=== PATIENT | female | born 1995 | race Caucasian/White ===

== ENCOUNTER 2016-06-10 21:51 | Emergency (ER) | payer OTHER ==
[~2016-06-10] VITALS: Ht 160 cm; Wt 67.7 kg
[~2016-06-10 21:51] MED LIST: CIPR500T4 PO; RANI150 PO; ZOFR4TAB3 SL
[2016-06-10 22:01] VITALS: BP 135/100; PULSE 110; RESP 16; TEMP 97.9; O2SAT 99
[2016-06-10] MEDS ORDERED: ONDANSETRON HCL 4 MG/2 ML VIAL IV PUSH ONE ×2 (22:15→23:30)
[2016-06-10] MEDS ORDERED: SODIUM CHLORIDE 0.9% FLUSH 10 ML FLUSH IVF PRN (22:15)
[2016-06-10] MEDS ORDERED: SODIUM CHLOR 0.9% 1000 ML INJ 1,000 ML IV ONE ×3 (22:15→23:30)
--- NOTE | 2016-06-10 22:22 | PD ---
HPI Chief Complaint: GI Complaint Time Seen by Provider: 22:04 Travel History International Travel<30 days: No Contact w/Intl Traveler<30days: No History of Present Illness HPI Patient is a 21 year old female who presents to ER with complaint of alcohol poisoning. Patient reports that she drank very heavily on Thursday night and reports that she has been feeling nauseous ever since Thursday night. Patient reports that she has been trying to hydrate herself with gatorade but every time she takes a sip, she throws up. Reports that she has not eaten or had any fluids for the past 3 days. Reports that she feels sick and is beginning to have palpitations at this time. Patient denies chest pain/sob. Denies fever/ chills. Denies abdominal pain. No other c/o. PFSH Past Medical History Medical History: Denies Significant Hx Asthma: Yes Depression: Yes Cardiovascular Problems: No Diabetes: No Diminished Hearing: No Gastrointestinal Disorders: No Genitourinary: No Musculoskeletal: No Neurologic: No Respiratory: Yes Immunizations Current: Yes Tetanus Vaccination: Never Vaccinated ?: Unknown LMP: 05/31/16 : 0 Para: 0 Miscarriage: 0 : 0 Past Surgical History Ear Surgery: Yes (TUBES 1999) Oral Surgery: Yes (T & A 1999) Tonsillectomy: Yes Tympanostomy Tube: Yes Other Surgery: Yes Social History Alcohol Use: Yes (OCCASIONALLY) Tobacco Use: No Substance Use: Yes (MARIJUANA sometimes) Allergies-Medications (Allergen,Severity, Reaction): Coded Allergies: Albuterol (Verified Allergy, Severe, Anaphylaxis, 06/10/16) Xopenex (Verified Allergy, Severe, Anaphylaxis, 06/10/16) Bactrim (Verified Allergy, Intermediate, Swelling, 06/10/16) Sulfa (Verified Allergy, Unknown, HIVES, 06/10/16) Reported Meds & Prescriptions Reported Meds & Active Scripts Active Zofran Odt (Ondansetron Odt) 4 Mg Tab 4 Mg SL Q6HR PRN Review of Systems General / Constitutional: No: Fever Eyes: No: Visual changes HENT: No: Headaches Cardiovascular: Positive: Palpitations, No: Chest Pain or Discomfort Respiratory: No: Shortness of Breath Gastrointestinal: Positive: Nausea, Vomiting, No: Abdominal Pain Genitourinary: No: Dysuria Musculoskeletal: No: Pain Skin: No Rash Neurologic: No: Weakness Psychiatric: No: Depression Endocrine: No: Polydipsia Hematologic/Lymphatic: No: Easy Bruising Physical Exam Narrative GENERAL: mild distress SKIN: Focused skin assessment warm/dry. HEAD: Atraumatic. Normocephalic. EYES: Pupils equal and round. No scleral icterus. No injection or drainage. ENT: No nasal bleeding or discharge. Mucous membranes pink and moist. NECK: Trachea midline. No JVD. CARDIOVASCULAR: Regular rate and rhythm. No murmur appreciated. RESPIRATORY: No accessory muscle use. Clear to auscultation. Breath sounds equal bilaterally. GASTROINTESTINAL: Abdomen soft, non-tender, nondistended. Hepatic and splenic margins not palpable. MUSCULOSKELETAL: No obvious deformities. No clubbing. No cyanosis. No edema. NEUROLOGICAL: Awake and alert. No obvious cranial nerve deficits. Motor grossly within normal limits. Normal speech. PSYCHIATRIC: Appropriate mood and affect; insight and judgment normal. Data Data Last Documented VS Vital Signs Date Time Temp Pulse Resp B/P Pulse Ox O2 Delivery O2 Flow Rate FiO2 06/10/16 22:56 100 Room Air 06/10/16 22:01 97.9 110 16 135/100 Orders Complete Blood Count With Diff (06/10/16 22:13) Comprehensive Metabolic Panel (06/10/16 22:13) Urinalysis - C+S If Indicated (06/10/16 22:13) Ed Urine Pregnancytest Poc (06/10/16 22:13) Electrocardiogram (06/10/16 22:13) Oximetry (06/10/16 22:13) Iv Access Insert/Monitor (06/10/16 22:13) Ecg Monitoring (06/10/16 22:13) Sodium Chloride 0.9% Flush (Ns Flush) (06/10/16 22:15) Drug Screen, Random Urine (06/10/16 22:13) Alcohol (Ethanol) (06/10/16 22:13) Sodium Chlor 0.9% 1000 Ml Inj (Ns 1000 M (06/10/16 22:15) Sodium Chlor 0.9% 1000 Ml Inj (Ns 1000 M (06/10/16 22:15) Ondansetron Inj (Zofran Inj) (06/10/16 22:15) Potassium Chloride Eff (K-Lyte Cl Eff) (06/10/16 23:15) Ondansetron Inj (Zofran Inj) (06/10/16 23:30) Sodium Chlor 0.9% 1000 Ml Inj (Ns 1000 M (06/10/16 23:30) Labs Laboratory Tests Test 06/10/16 22:20 White Blood Count 11.2 TH/MM3 Red Blood Count 6.11 MIL/MM3 Hemoglobin 18.1 GM/DL Hematocrit 52.7 % Mean Corpuscular Volume 86.2 FL Mean Corpuscular Hemoglobin 29.7 PG Mean Corpuscular Hemoglobin 34.4 % Concent Red Cell Distribution Width 13.5 % Platelet Count 224 TH/MM3 Mean Platelet Volume 7.9 FL Neutrophils (%) (Auto) 80.0 % Lymphocytes (%) (Auto) 10.1 % Monocytes (%) (Auto) 9.5 % Eosinophils (%) (Auto) 0.0 % Basophils (%) (Auto) 0.4 % Neutrophils # (Auto) 9.0 TH/MM3 Lymphocytes # (Auto) 1.1 TH/MM3 Monocytes # (Auto) 1.1 TH/MM3 Eosinophils # (Auto) 0.0 TH/MM3 Basophils # (Auto) 0.0 TH/MM3 CBC Comment AUTO DIFF Differential Comment AUTO DIFF CONFIRMED Platelet Estimate NORMAL Platelet Morphology Comment NORMAL Red Cell Morphology Comment NORMAL Sodium Level 130 MEQ/L Potassium Level 2.4 MEQ/L Chloride Level 78 MEQ/L Carbon Dioxide Level 38.8 MEQ/L Anion Gap 13 MEQ/L Blood Urea Nitrogen 32 MG/DL Creatinine 1.30 MG/DL Estimat Glomerular Filtration 52 ML/MIN Rate Random Glucose 108 MG/DL Calcium Level 10.0 MG/DL Total Bilirubin 2.1 MG/DL Aspartate Amino Transf 60 U/L (AST/SGOT) Alanine Aminotransferase 44 U/L (ALT/SGPT) Alkaline Phosphatase 57 U/L Total Protein 9.4 GM/DL Albumin 4.8 GM/DL Ethyl Alcohol Level LESS THAN 3 MG/DL MDM Medical Decision Making Medical Screen Exam Complete: Yes Emergency Medical Condition: Yes Interpretation(s) EKG at 2245: NSR at 74bpm, qt/qtc: 428/452, no acute st or t wave changes Vital Signs Date Time Temp Pulse Resp B/P Pulse Ox O2 Delivery O2 Flow Rate FiO2 06/10/16 22:01 97.9 110 16 135/100 99 Differential Diagnosis Dehydration, electrolyte abnormality, hangover from ETOH poisoning Narrative Course Patient is a 21 year old female who presents to ER with c/o of nausea and vomiting and palpitations. Patient reports that she was depressed as she had "alot of family issues" going on and reports that she accidently drank too much on Thursday. Reports that she suffered from alcohol poisoning and reports that she has not been able to keep down any fluids or food for the past 3 days. Patient reports that she feels dehydrated and is nauseous. Denies abdominal pains. Reports that she is having intermittent palpitations at this time. Plan to obtain lab work and rehydrate by administering IVF as well as anti- emetics. Diagnosis Primary Impression: Nausea & vomiting Qualified Code: R11.2 - Non-intractable vomiting with nausea, unspecified vomiting type Additional Impression: Hypokalemia Patient Instructions: General Instructions Additional Instructions: Please return to the emergency room as needed or if symptoms worsen or progress Please follow-up with primary care doctor Patient plenty of fluids Med/Other Pt SpecificInfo: Prescription(s) given Scripts Ondansetron Odt (Zofran Odt)4 Mg Tab4 Mg SL Q6HR PRN (Nausea/Vomiting) #30 TAB Ref 0 Prov:Amna Carmona DO 06/10/16 Disposition: 01 DISCHARGE HOME Condition: Stable Amna Carmona DO June 10, 2016 22:22
[2016-06-10 22:32] LABS: BASOPHIL % 0.4 % (0.0-2.0); HEMATOCRIT 52.7 % (35.0-46.0); LYMPH % 10.1 % (9.0-44.0); LYMPHOCYTE # 1.1 TH/MM3 (1.0-4.8); MEAN CELL VOLUME 86.2 FL (80.0-100.0); MEAN CORPUSCULAR HEMOGLOBIN 29.7 PG (27.0-34.0); MEAN CORPUSCULAR HGB CONC 34.4 % (32.0-36.0); MONO % 9.5 % (0.0-8.0); PLATELET COUNT 224 TH/MM3 (150-450); RED BLOOD COUNT 6.11 MIL/MM3 (4.00-5.30); RED CELL DISTRIBUTION WIDTH 13.5 % (11.6-17.2); WHITE BLOOD COUNT 11.2 TH/MM3 (4.0-11.0)
[2016-06-10] MEDS ORDERED: ZOFR4TAB3 SL (22:52)
[2016-06-10 22:55] VITALS: BP 141/89; PULSE 72; RESP 18; O2SAT 100
[2016-06-10 22:56] VITALS: O2SAT 100
[2016-06-10 22:59] LABS: HEMO FLAGS AUTO DIFF
[2016-06-10 23:00] LABS: PLATELET ESTIMATE SMEAR NORMAL (NORMAL); PLATELET MORPHOLOGY NORMAL (NORMAL); SCAN/DIFF AUTO DIFF CONFIRMED
[2016-06-10 23:03] LABS: ALKALINE PHOSPHATASE 57 U/L (45-117); ALT (GPT) 44 U/L (10-53); ANION GAP 13 MEQ/L (5-15); AST (GOT) 60 U/L (15-37); BICARBONATE 38.8 MEQ/L (21.0-32.0); BLOOD UREA NITROGEN 32 MG/DL (7-18); CHLORIDE 78 MEQ/L (98-107); GLOMERULAR FILTRATION RATE 52 ML/MIN (>89); SODIUM (NA) 130 MEQ/L (136-145); TOTAL BILIRUBIN ADULT 2.1 MG/DL (0.2-1.0)
[2016-06-10 23:06] LABS: POTASSIUM 2.4 MEQ/L (3.5-5.1)
[2016-06-10] MEDS ORDERED: POTASSIUM CHLORIDE 25 MEQ EFFERVESCENT TAB PO ONE (23:15)
[2016-06-10 23:53] LABS: BLOOD, URINE TRACE (NEG); GLUCOSE,URINE NEG (NEG); KETONE, URINE 15 mg/dL (NEG); NITRITE,URINE NEG (NEG); PH, URINE 8.5 (5.0-8.5)
[2016-06-10 23:55] VITALS: BP 136/77; PULSE 76; RESP 18; O2SAT 100
[2016-06-11] MEDS ORDERED: METOCLOPRAMIDE HCL 10 MG/2 ML VIAL IV PUSH ONE
[2016-06-11 00:03] LABS: AMPHETAMINE, URINE NEG (NEG); BARBITURATES, URINE NEG (NEG); COCAINE, URINE NEG (NEG)
[2016-06-11 00:09] LABS: URINE COLOR YELLOW (YELLW/STRAW)
[2016-06-11 00:10] LABS: HYALINE CAST, URINE 15-19 /lpf (RARE); MUCUS URINE FEW /lpf (OCC); SQUAMOUS EPITHELIAL CELL URINE 0-5 /hpf (0-5)
[2016-06-11 00:11] LABS: BACTERIA, URINE OCC /hpf; COMMENT (UR) CULT NOT INDICATED; CULTURE IF INDICATED CULT NOT INDICATED; RBC, URINE 0-3 /hpf (0-3)
[2016-06-11 01:11] VITALS: BP 129/71; TEMP 97.9
--- NOTE | 2016-06-11 10:32 | EKG ---
Date Performed: 06/10/2016 Time Performed: 22:45:02 PTAGE: 21 years EKG: Sinus rhythm ST junctional depression is nonspecific Borderline ECG PREVIOUS TRACING : 08/01/2015 13.57 DOCTOR: Kam Cordero Interpretating Date/Time 06/11/2016 10:32:05
== END 2016-06-11 01:14 | disposition home or self-care (01) ==
LOC: PHED 21:51
DX: E87.6 Hypokalemia (principal); R00.2 Palpitations; R11.2 Nausea with vomiting, unspecified; F10.10 Alcohol abuse, uncomplicated
CPT/HCPCS: 80053; 80307; 81001; 84703; 85025; 93005; 96361; 96374; 96375; 96376; 99285; J2405; J2765; J7030

== ENCOUNTER 2016-07-08 14:24 | Emergency (ER) | payer OTHER ==
[~2016-07-08] VITALS: Ht 160 cm; Wt 69.0 kg
[~2016-07-08 14:24] MED LIST changes: -CIPR500T4 PO; -RANI150 PO
[2016-07-08 14:39] VITALS: BP 113/80; PULSE 105; RESP 17; TEMP 100.1; O2SAT 98
[2016-07-08 15:10] VITALS: BP 174/90; PULSE 78; RESP 16; O2SAT 97
[2016-07-08] MEDS ORDERED: SODIUM CHLOR 0.9% 1000 ML INJ 1,000 ML IV ONE (15:15)
[2016-07-08] MEDS ORDERED: ONDANSETRON HCL 4 MG/2 ML VIAL IV PUSH ONE (15:15)
--- NOTE | 2016-07-08 15:34 | PD ---
HPI Chief Complaint: Flank/Kidney Pain Time Seen by Provider: 14:57 Travel History International Travel<30 days: No Contact w/Intl Traveler<30days: No Traveled to known affect area: No History of Present Illness HPI Patient is a 21-year-old female who comes in complaining of right flank pain for 3 days. She says the pain is getting much worse, and wraps around to her front. She's had some nausea and vomiting. She denies fever or chills. She denies dysuria, but says it feels like she is not completely emptying her bladder. PFSH Past Medical History Asthma: Yes Depression: Yes Cardiovascular Problems: No Diabetes: No Diminished Hearing: No Gastrointestinal Disorders: No Genitourinary: Yes (hx of kidney infections) Musculoskeletal: No Neurologic: No Respiratory: Yes Immunizations Current: Yes Tetanus Vaccination: < 5 Years Influenza Vaccination: No ?: Not LMP: 4 WEEKS AGO : 0 Para: 0 Miscarriage: 0 : 0 Past Surgical History Ear Surgery: Yes (TUBES 1999) Oral Surgery: Yes (T & A 1999) Tonsillectomy: Yes Tympanostomy Tube: Yes Other Surgery: Yes Social History Alcohol Use: Yes (OCCASIONALLY mix drinks or wine) Tobacco Use: No Substance Use: Yes (MARIJUANA sometimes) Allergies-Medications (Allergen,Severity, Reaction): Coded Allergies: Albuterol (Verified Allergy, Severe, Anaphylaxis, 07/08/16) Xopenex (Verified Allergy, Severe, Anaphylaxis, 07/08/16) Bactrim (Verified Allergy, Intermediate, Swelling, 07/08/16) Sulfa (Verified Allergy, Unknown, HIVES, 07/08/16) Reported Meds & Prescriptions Reported Meds & Active Scripts Active No Active Prescriptions or Reported Medications Review of Systems Except as stated in HPI: all other systems reviewed are Neg General / Constitutional: No: Fever, Chills HENT: No: Headaches, Lightheadedness Cardiovascular: No: Chest Pain or Discomfort Respiratory: No: Shortness of Breath Gastrointestinal: Positive: Nausea, Vomiting, Abdominal Pain Genitourinary: Positive: Flank Pain, No: Dysuria Musculoskeletal: No: Weakness, Edema Skin: No Rash, No Change in Pigmentation Neurologic: No: Weakness, Dizziness Physical Exam Narrative GENERAL: Awake and alert, in no acute distress. SKIN: Focused skin assessment warm/dry. HEAD: Atraumatic. Normocephalic. EYES: Pupils equal and round. No scleral icterus. ENT: Mucous membranes pink and moist. NECK: Trachea midline. No JVD. CARDIOVASCULAR: Regular rate and rhythm. No murmur appreciated. RESPIRATORY: No accessory muscle use. Clear to auscultation. Breath sounds equal bilaterally. GASTROINTESTINAL: Abdomen soft, nondistended. Tender to palpation of the right upper quadrant. Right CVA tenderness. No rebound or guarding. MUSCULOSKELETAL: No obvious deformities. No clubbing. No cyanosis. No edema. NEUROLOGICAL: Awake and alert. No obvious cranial nerve deficits. Motor grossly within normal limits. Normal speech. PSYCHIATRIC: Appropriate mood and affect; insight and judgment normal. Data Data Last Documented VS Vital Signs Date Time Temp Pulse Resp B/P Pulse Ox O2 Delivery O2 Flow Rate FiO2 07/08/16 15:07 105 16 07/08/16 14:39 100.1 113/80 98 Orders Complete Blood Count With Diff (07/08/16 15:04) Basic Metabolic Panel (Bmp) (07/08/16 15:04) Hepatic Functional Panel (07/08/16 15:04) Lipase (07/08/16 15:04) Urinalysis - C+S If Indicated (07/08/16 15:04) Ed Urine Pregnancytest Poc (07/08/16 15:04) Sodium Chlor 0.9% 1000 Ml Inj (Ns 1000 M (07/08/16 15:15) Ondansetron Inj (Zofran Inj) (07/08/16 15:15) Ct Abd/Pel W/O Iv Contrast (07/08/16 ) MDM Medical Decision Making Medical Screen Exam Complete: Yes Emergency Medical Condition: Yes Medical Record Reviewed: Yes Differential Diagnosis UTI versus pyelonephritis versus renal stone Narrative Course Patient is a 21-year-old female who comes in complaining of right flank pain. Exam shows right CVA tenderness as well as right upper quadrant tenderness. IV established, labs sent. Patient given IV fluids, Zofran. CT abdomen and pelvis ordered. Patient signed out to Dr. Garcia To follow up testing and disposition. Scripts No Active Prescriptions or Reported Meds Irena Velazquez MD July 08, 2016 15:34
[2016-07-08 15:39] LABS: AUTOMATED NEUTROPHIL # 15.3 TH/MM3 (1.8-7.7); BASOPHIL # 0.3 TH/MM3 (0-0.2); BASOPHIL % 1.6 % (0.0-2.0); EOSINOPHIL # 0.1 TH/MM3 (0-0.4); EOSINOPHIL % 0.7 % (0.0-4.0); HEMATOCRIT 41.6 % (35.0-46.0); LYMPH % 2.5 % (9.0-44.0); LYMPHOCYTE # 0.4 TH/MM3 (1.0-4.8); MEAN CELL VOLUME 88.4 FL (80.0-100.0); MEAN CORPUSCULAR HEMOGLOBIN 29.5 PG (27.0-34.0); MEAN CORPUSCULAR HGB CONC 33.4 % (32.0-36.0); MONO % 5.3 % (0.0-8.0); NEUT % 89.9 % (16.0-70.0); PLATELET COUNT 136 TH/MM3 (150-450); RED BLOOD COUNT 4.71 MIL/MM3 (4.00-5.30); RED CELL DISTRIBUTION WIDTH 14.2 % (11.6-17.2)
[2016-07-08 15:46] LABS: HEMO FLAGS AUTO DIFF
[2016-07-08] MEDS ORDERED: KETOROLAC TROMETHAMINE 30 MG/ML (IVP) VIAL IV PUSH ONE (16:00)
[2016-07-08 16:27] LABS: BICARBONATE 22.6 MEQ/L (21.0-32.0); POTASSIUM 3.6 MEQ/L (3.5-5.1)
[2016-07-08 16:30] LABS: INDIRECT BILIRUBIN 0.6 MG/DL (0.0-0.8); TOTAL BILIRUBIN ADULT 0.8 MG/DL (0.2-1.0)
[2016-07-08 16:44] LABS: SCAN/DIFF AUTO DIFF CONFIRMED
[2016-07-08 16:50] VITALS: BP 100/55; PULSE 81; RESP 16; O2SAT 99
[2016-07-08 16:54] LABS: BLOOD, URINE LARGE (NEG); GLUCOSE,URINE NEG (NEG)
[2016-07-08 17:01] LABS: KETONE, URINE 80 OR GREATER mg/dL (NEG); NITRITE,URINE POS (NEG)
[2016-07-08 17:03] LABS: BACTERIA, URINE MANY /hpf; COMMENT (UR) CULTURE INDICATED; CULTURE IF INDICATED CULTURE INDICATED; SQUAMOUS EPITHELIAL CELL URINE > 8 /hpf (0-5); URINE COLOR YELLOW (YELLW/STRAW); WBC, URINE 100-200 /hpf (0-5)
--- NOTE | 2016-07-08 17:15 | RADHPO ---
EXAM DATE/TIME: 07/08/2016 16:48 [facility] COMPARISON: No previous studies available for comparison. INDICATIONS : Right flank pain. ORAL CONTRAST: No oral contrast ingested. RADIATION DOSE: 10.46 CTDIvol (mGy) MEDICAL HISTORY : None SURGICAL HISTORY : None. ENCOUNTER: Initial ACUITY: 3 days PAIN SCALE: 6/10 LOCATION: Right flank TECHNIQUE: Volumetric scanning of the abdomen and pelvis was performed. Using automated exposure control and ad justment of the mA and/or kV according to patient size, radiation dose was kept as low as reasonably achievable to obtain optimal diagnostic quality images. The lack of IV contrast limits the diagnosis for certain organ pathology. FINDINGS: LOWER LUNGS: The visualized lower lungs are clear. LIVER: Homogeneous density without lesion. There is no dilation of the biliary tree. No calcified gallston es. SPLEEN: Normal size without lesion. PANCREAS: Within normal limits. KIDNEYS: Normal in size and shape. There is no mass, stone, or hydronephrosis. ADRENAL GLANDS: Within normal limits. VASCULAR: There is no aortic aneurysm. BOWEL/MESENTERY: The stomach, small bowel, and colon demonstrate no acute abnormality. There is no free intraperitone al air. The appendix is unremarkable. No inflammatory changes are seen. There is a trace of fluid in cul-de-sac. ABDOMINAL WALL: Within normal limits. RETROPERITONEUM: There is no lymphadenopathy. BLADDER: No wall thickening or mass. REPRODUCTIVE: 2.1 cm right ovarian cyst with a trace of fluid in the cul-de-sac. INGUINAL: There is no lymphadenopathy or hernia. MUSCULOSKELETAL: Within normal limits for patient age. CONCLUSION: 1. No calcified renal stones or hydronephrosis. 2. 2.1 cm right ovarian cyst with a trace of fluid in the cul-de-sac. Gabo Cazares MD on July 08, 2016 at 17:10 Board Certified Radiologist. This report was verified electronically.
[2016-07-08] MEDS ORDERED: CIPR500T2 PO (17:30)
[2016-07-08] MEDS ORDERED: ZOFR4TAB3 SL (17:30)
[2016-07-08] MEDS ORDERED: cefTRIAXone INJ 1,000 MG in SODIUM CHLORIDE 0.9% INJ 100 ML IV ONE (17:30)
--- NOTE | 2016-07-08 17:30 | PD ---
Data Data Last Documented VS Vital Signs Date Time Temp Pulse Resp B/P Pulse Ox O2 Delivery O2 Flow Rate FiO2 07/08/16 16:51 87 16 07/08/16 16:50 100/55 99 Room Air 07/08/16 14:39 100.1 Orders Complete Blood Count With Diff (07/08/16 15:04) Basic Metabolic Panel (Bmp) (07/08/16 15:04) Hepatic Functional Panel (07/08/16 15:04) Lipase (07/08/16 15:04) Urinalysis - C+S If Indicated (07/08/16 15:04) Ed Urine Pregnancytest Poc (07/08/16 15:04) Sodium Chlor 0.9% 1000 Ml Inj (Ns 1000 M (07/08/16 15:15) Ondansetron Inj (Zofran Inj) (07/08/16 15:15) Ct Abd/Pel W/O Iv Contrast (07/08/16 ) Ketorolac Inj (Toradol Inj) (07/08/16 16:00) Urine Culture (07/08/16 16:30) Ceftriaxone Inj (Rocephin Inj) (07/08/16 17:30) Labs Laboratory Tests Test 07/08/16 07/08/16 15:20 16:30 White Blood Count 17.0 TH/MM3 Red Blood Count 4.71 MIL/MM3 Hemoglobin 13.9 GM/DL Hematocrit 41.6 % Mean Corpuscular Volume 88.4 FL Mean Corpuscular Hemoglobin 29.5 PG Mean Corpuscular Hemoglobin 33.4 % Concent Red Cell Distribution Width 14.2 % Platelet Count 136 TH/MM3 Mean Platelet Volume 8.3 FL Neutrophils (%) (Auto) 89.9 % Lymphocytes (%) (Auto) 2.5 % Monocytes (%) (Auto) 5.3 % Eosinophils (%) (Auto) 0.7 % Basophils (%) (Auto) 1.6 % Neutrophils # (Auto) 15.3 TH/MM3 Lymphocytes # (Auto) 0.4 TH/MM3 Monocytes # (Auto) 0.9 TH/MM3 Eosinophils # (Auto) 0.1 TH/MM3 Basophils # (Auto) 0.3 TH/MM3 CBC Comment AUTO DIFF Differential Comment AUTO DIFF CONFIRMED Sodium Level 138 MEQ/L Potassium Level 3.6 MEQ/L Chloride Level 104 MEQ/L Carbon Dioxide Level 22.6 MEQ/L Anion Gap 11 MEQ/L Blood Urea Nitrogen 7 MG/DL Creatinine 0.76 MG/DL Estimat Glomerular Filtration 96 ML/MIN Rate Random Glucose 101 MG/DL Calcium Level 9.1 MG/DL Total Bilirubin 0.8 MG/DL Direct Bilirubin 0.2 MG/DL Indirect Bilirubin 0.6 MG/DL Aspartate Amino Transf 20 U/L (AST/SGOT) Alanine Aminotransferase 18 U/L (ALT/SGPT) Alkaline Phosphatase 59 U/L Total Protein 7.3 GM/DL Albumin 3.6 GM/DL Lipase 50 U/L Urine Color YELLOW Urine Turbidity CLOUDY Urine pH 6.0 Urine Specific [place] 1.015 Urine Protein 100 mg/dL Urine Glucose (UA) NEG mg/dL Urine Ketones 80 OR GREATER mg/dL Urine Occult Blood LARGE Urine Nitrite POS Urine Bilirubin NEG Urine Leukocyte Esterase MOD Urine RBC 20-24 /hpf Urine WBC 100-200 /hpf Urine Squamous Epithelial > 8 /hpf Cells Urine Bacteria MANY /hpf Microscopic Urinalysis Comment CULTURE INDICATED MDM Supervised Visit with TACO: No Narrative Course The patient was initially evaluated by the previous provider and sent out to me at the beginning of my shift pending labs, CT abdomen pelvis, and disposition. See her note for further details. Briefly this is a 21-year-old female who is here for evaluation of right flank pain 3 days. Today the patient had worsening pain as well as nausea and vomiting. Pain radiates to her right upper abdomen as well as her right lower abdomen. The patient was given normal saline IV as well as Zofran by the previous provider, and on my assessment the patient states she is feeling improved. She no longer feels nauseous and is tolerating clear liquids in the emergency department. Physical exam shows mild right upper quadrant tenderness as well as mild right CVA tenderness. Initial vital signs showed heart rate 105, blood pressure 113/80, pulse ox 90% on room air, oral temp of 100.1F. Heart rate improved to 87 after the patient received IV fluids. CBC shows WBC 17, hemoglobin 13.9, hematocrit 41.6, platelets 136, neutrophils 89.9%. CMP is unremarkable. Lipase is 50. UA is suggestive of UTI. CT abdomen pelvis: No calcified renal stones or hydronephrosis. 2.1 cm right ovarian cyst with trace fluid in the cul-de-sac. Normal appendix. Patient was made aware of all findings provided a copy of her CT abdomen pelvis report. She is resting comfortably. She states she feels well enough to go home. She will be given a dose of IV Rocephin here in the emergency department for pyelonephritis and will be discharged home with a prescription for Cipro. PMD follow-up this week. Patient informed on when to return to the emergency department. She verbalizes understanding and agreement with plan. Diagnosis Primary Impression: Pyelonephritis Additional Impression: Right ovarian cyst Referrals: Primary Care Physician 3 days Additional Instruction: Follow-up with a primary care physician this week. Return to the emergency department for worsening symptoms or any other concerns. Scripts Ondansetron Odt (Zofran Odt)4 Mg Tab4 Mg SL Q8HR PRN (Nausea/Vomiting) #20 TAB Ref 0 Prov:Angel Garcia MD 07/08/16 Ciprofloxacin 500 Mg [id number] Mg PO BID 7 Days Ref 0 Prov:Angel Garcia MD 07/08/16 Disposition: 01 DISCHARGE HOME Condition: Stable Angel Garcia MD July 08, 2016 17:30
[2016-07-08 18:10] VITALS: BP 99/56; PULSE 69; RESP 16; TEMP 98.8; O2SAT 98
[2016-07-08 19:00] VITALS: BP 102/59
== END 2016-07-08 19:02 | disposition home or self-care (01) ==
LOC: PHED 14:24
DX: N12 Tubulo-interstitial nephritis, not specified as acute or chronic (principal); N83.201 Unspecified ovarian cyst, right side; R11.2 Nausea with vomiting, unspecified; J45.909 Unspecified asthma, uncomplicated; F32.9 Major depressive disorder, single episode, unspecified; Z88.8 Allergy status to other drugs, medicaments and biological substances; Z88.2 Allergy status to sulfonamides
CPT/HCPCS: 74176; 80048; 80076; 81001; 83690; 84703; 85025; 87077; 87086; 87186; 96361; 96365; 96375; 99285; J0696; J1885; J2405; J7030

== ENCOUNTER 2016-07-18 08:27 | Emergency (ER) | payer OTHER ==
[~2016-07-18] VITALS: Ht 160 cm; Wt 65.0 kg
[~2016-07-18 08:27] MED LIST changes: +CIPR500T2 PO
[2016-07-18 08:32] VITALS: BP 136/93; PULSE 69; RESP 16; TEMP 98.1; O2SAT 96
[2016-07-18] MEDS ORDERED: SODIUM CHLOR 0.9% 1000 ML INJ 1,000 ML IV SCH ×2 (08:46→09:00)
[2016-07-18] MEDS ORDERED: ALUMINUM/MAGNESIUM/SIMETH 30 ML CUP PO ONE (09:00)
[2016-07-18] MEDS ORDERED: LIDOCAINE VISCOUS 2% SOLN 15 ML UDC PO ONE (09:00)
[2016-07-18] MEDS ORDERED: ONDANSETRON HCL 4 MG/2 ML VIAL IVP ONE (09:00)
[2016-07-18] MEDS: SODIUM CHLORIDE 0.9% FLUSH 10 ML FLUSH IV FLUSH PRN ×3 (09:02→10:15)
[2016-07-18] MEDS ORDERED: ZOFR4TAB3 SL (09:06)
--- NOTE | 2016-07-18 09:06 | PD ---
HPI Chief Complaint: GI Complaint Time Seen by Provider: 08:37 Travel History International Travel<30 days: No Contact w/Intl Traveler<30days: No Traveled to known affect area: No History of Present Illness HPI To 21 year-old woman presents emergent department nausea vomiting epigastric pain ongoing for the past 2 days or so. She recently treated for pyelonephritis when she was having back pain, and urinary symptoms. She completed 7 days of Cipro. Cultures grew out pansensitive Escherichia coli. She felt improved until about 2 days ago she started having nausea and vomiting. Started having epigastric pain. She has some tenderness. She had chills but no fever. No back pain. No vaginal discharge or vaginal bleeding. No urinary symptoms. Last initial period was about 5 weeks ago. No other complaints. Patient has a history of stomach problems almost daily. She did seen multiple times for vomiting and abdominal pain in the past. She smokes marijuana daily. She states in the past her abdominal pain and vomiting are related to " alcohol poisoning". She states she drinks infrequently now. History Past Medical History Narrative Medical History of exercise-induced asthma in the past LMP: 5 WEEKS AGO-IRREGULAR PER PT. : 0 Para: 0 Social History Alcohol Use: Yes (OCCASIONALLY mix drinks or wine) Tobacco Use: No Allergies-Medications (Allergen,Severity, Reaction): Coded Allergies: Albuterol (Verified Allergy, Severe, Anaphylaxis, 07/18/16) Xopenex (Verified Allergy, Severe, Anaphylaxis, 07/18/16) Bactrim (Verified Allergy, Intermediate, Swelling, 07/18/16) Sulfa (Verified Allergy, Unknown, HIVES, 07/18/16) Reported Meds & Prescriptions Reported Meds & Active Scripts Active Zofran Odt (Ondansetron Odt) 4 Mg Tab 4 Mg SL Q8HR PRN Review of Systems Except as stated in HPI: all other systems reviewed are Neg Physical Exam Narrative GENERAL: Well-appearing 21 year-old woman, no acute distress. SKIN: Focused skin assessment warm/dry. ENT: No nasal bleeding or discharge. Mucous membranes pink and moist. NECK: Trachea midline. No JVD. CARDIOVASCULAR: Regular rate and rhythm. No murmur appreciated. RESPIRATORY: No accessory muscle use. Clear to auscultation. Breath sounds equal bilaterally. GASTROINTESTINAL: Abdomen flat and soft. Mild epigastric tenderness. No rebound or guarding. MUSCULOSKELETAL: No obvious deformities. No edema. NEUROLOGICAL: Awake and alert. No obvious cranial nerve deficits. Motor grossly within normal limits. Normal speech. PSYCHIATRIC: Somewhat silly. Data Data Last Documented VS Vital Signs Date Time Temp Pulse Resp B/P Pulse Ox O2 Delivery O2 Flow Rate FiO2 07/18/16 08:40 16 07/18/16 08:32 98.1 69 136/93 96 Orders Complete Blood Count With Diff (07/18/16 08:46) Comprehensive Metabolic Panel (07/18/16 08:46) Lipase (07/18/16 08:46) Urinalysis - C+S If Indicated (07/18/16 08:46) Iv Access Insert/Monitor (07/18/16 08:46) Ondansetron Inj (Zofran Inj) (07/18/16 09:00) Sodium Chlor 0.9% 1000 Ml Inj (Ns 1000 M (07/18/16 08:46) Sodium Chloride 0.9% Flush (Ns Flush) (07/18/16 09:00) Al-Mag Hy-Si 40-40-4 Mg/Ml Liq (Mag-Al P (07/18/16 09:00) Lidocaine 2% Viscous (Xylocaine 2% Visco (07/18/16 09:00) Ed Urine Pregnancytest Poc (07/18/16 08:46) Sodium Chlor 0.9% 1000 Ml Inj (Ns 1000 M (07/18/16 09:00) Metoclopramide Inj (Reglan Inj) (07/18/16 10:00) Labs Laboratory Tests Test 07/18/16 07/18/16 08:54 08:58 Urine Collection Type CLEAN CATCH Urine Color YELLOW Urine Turbidity CLEAR Urine pH 8.5 Urine Specific [place] 1.030 Urine Protein 300 OR GREATER mg/dL Urine Glucose (UA) NEG mg/dL Urine Ketones TRACE mg/dL Urine Occult Blood NEG Urine Nitrite NEG Urine Bilirubin NEG Urine Leukocyte Esterase NEG Urine WBC 3-5 /hpf Urine Squamous Epithelial 6-8 /hpf Cells Urine Bacteria OCC /hpf Urine Mucus MOD /lpf Microscopic Urinalysis Comment CULT NOT INDICATED Urine Collection Time 08:54 Sodium Level 139 MEQ/L Potassium Level 3.0 MEQ/L Chloride Level 94 MEQ/L Carbon Dioxide Level 31.3 MEQ/L Anion Gap 14 MEQ/L Blood Urea Nitrogen 18 MG/DL Creatinine 1.00 MG/DL Estimat Glomerular Filtration 70 ML/MIN Rate Random Glucose 126 MG/DL Calcium Level 9.8 MG/DL Total Bilirubin 0.5 MG/DL Aspartate Amino Transf 27 U/L (AST/SGOT) Alanine Aminotransferase 46 U/L (ALT/SGPT) Alkaline Phosphatase 60 U/L Total Protein 9.3 GM/DL Albumin 4.3 GM/DL Lipase 93 U/L White Blood Count 18.3 TH/MM3 Red Blood Count 5.33 MIL/MM3 Hemoglobin 15.6 GM/DL Hematocrit 46.1 % Mean Corpuscular Volume 86.5 FL Mean Corpuscular Hemoglobin 29.3 PG Mean Corpuscular Hemoglobin 33.8 % Concent Red Cell Distribution Width 14.4 % Platelet Count 598 TH/MM3 Mean Platelet Volume 7.4 FL Neutrophils (%) (Auto) 87.6 % Lymphocytes (%) (Auto) 8.0 % Monocytes (%) (Auto) 4.2 % Eosinophils (%) (Auto) 0.0 % Basophils (%) (Auto) 0.2 % Neutrophils # (Auto) 16.0 TH/MM3 Lymphocytes # (Auto) 1.5 TH/MM3 Monocytes # (Auto) 0.8 TH/MM3 Eosinophils # (Auto) 0.0 TH/MM3 Basophils # (Auto) 0.0 TH/MM3 CBC Comment DIFF FINAL Differential Comment MDM Medical Decision Making Medical Screen Exam Complete: Yes Emergency Medical Condition: Yes Interpretation(s) LABS: CBC remarkable for a white count of 18.3 thousand, some hemoconcentration, platelet count 598 CMP with low potassium, total proteins a little bit elevated UA with trace Ketones, occasional bacteria Differential Diagnosis Vomiting, nausea, gastritis, marijuana hyperemesis syndrome, cyclic vomiting, recurrent UTI, , other Narrative Course Medical decision making 21 year-old woman with daily stomach problems now with nausea vomiting and epigastric pain. Likely gastritis, recurrent UTI, , or marijuana hyperemesis syndrome. I recommended trial abstinence from marijuana [place] of her abdominal problems could be related. We'll give IV fluids, check labs, check , antiemetics, likely discharge. Diagnosis Primary Impression: Nausea & vomiting Additional Instructions: Continue Zofran as needed for nausea or vomiting. Drink plenty fluids stay well-hydrated. Consider abstaining from marijuana for a period of 1 month to determine if this could be causing or contributing to some of your symptoms. Return to the emergency department for any new or worsening symptoms. Med/Other Pt SpecificInfo: Prescription(s) given Scripts Ondansetron Odt (Zofran Odt)4 Mg Tab4 Mg SL Q8HR PRN (Nausea/Vomiting) #20 TAB Ref 0 Prov:Kam Garcia MD 07/18/16 Disposition: 01 DISCHARGE HOME Condition: Stable Kam Garcia MD Jul 18, 2016 09:06 Kam Garcia MD Jul 18, 2016 09:06
[2016-07-18 09:15] LABS: BASOPHIL % 0.2 % (0.0-2.0); HEMATOCRIT 46.1 % (35.0-46.0); HEMO FLAGS DIFF FINAL; LYMPHOCYTE # 1.5 TH/MM3 (1.0-4.8); MEAN CELL VOLUME 86.5 FL (80.0-100.0); MEAN CORPUSCULAR HEMOGLOBIN 29.3 PG (27.0-34.0); MEAN CORPUSCULAR HGB CONC 33.8 % (32.0-36.0); MONO % 4.2 % (0.0-8.0); NEUT % 87.6 % (16.0-70.0); PLATELET COUNT 598 TH/MM3 (150-450); RED BLOOD COUNT 5.33 MIL/MM3 (4.00-5.30); RED CELL DISTRIBUTION WIDTH 14.4 % (11.6-17.2); WHITE BLOOD COUNT 18.3 TH/MM3 (4.0-11.0)
[2016-07-18 09:26] LABS: BLOOD, URINE NEG (NEG); GLUCOSE,URINE NEG (NEG); KETONE, URINE TRACE mg/dL (NEG); NITRITE,URINE NEG (NEG); PH, URINE 8.5 (5.0-8.5)
[2016-07-18 09:31] LABS: METHOD OF COLLECTION CLEAN CATCH; MUCUS URINE MOD /lpf (OCC); URINE COLOR YELLOW (YELLW/STRAW)
[2016-07-18 09:32] LABS: BACTERIA, URINE OCC /hpf; COMMENT (UR) CULT NOT INDICATED; CULTURE IF INDICATED CULT NOT INDICATED
[2016-07-18 09:57] LABS: CHLORIDE 94 MEQ/L (98-107); SODIUM (NA) 139 MEQ/L (136-145)
[2016-07-18] MEDS ORDERED: METOCLOPRAMIDE HCL 10 MG/2 ML VIAL IV PUSH ONE (10:00)
[2016-07-18 10:01] LABS: ANION GAP 14 MEQ/L (5-15); BICARBONATE 31.3 MEQ/L (21.0-32.0)
[2016-07-18 10:03] LABS: BLOOD UREA NITROGEN 18 MG/DL (7-18)
[2016-07-18 10:04] LABS: ALT (GPT) 46 U/L (10-53); AST (GOT) 27 U/L (15-37); GLOMERULAR FILTRATION RATE 70 ML/MIN (>89)
[2016-07-18 10:06] LABS: TOTAL BILIRUBIN ADULT 0.5 MG/DL (0.2-1.0)
[2016-07-18 10:07] LABS: ALKALINE PHOSPHATASE 60 U/L (45-117)
[2016-07-18] MEDS ORDERED: LORazepam 2 MG/ML VIAL IV PUSH ONE (10:15)
[2016-07-18 10:40] VITALS: BP 96/47
== END 2016-07-18 10:51 | disposition home or self-care (01) ==
LOC: PHED 08:27
DX: R11.2 Nausea with vomiting, unspecified (principal); R10.13 Epigastric pain; F12.90 Cannabis use, unspecified, uncomplicated; J45.990 Exercise induced bronchospasm
CPT/HCPCS: 80053; 81001; 83690; 84703; 85025; 96361; 96374; 96375; 99284; J2060; J2405; J2765; J7030

== ENCOUNTER 2016-09-20 09:38 | Emergency (ER) | payer OTHER ==
[~2016-09-20 09:38] MED LIST changes: -CIPR500T2 PO
[2016-09-20] MEDS ORDERED: SODIUM CHLOR 0.9% 1000 ML INJ 1,000 ML IV SCH (09:53)
[2016-09-20] MEDS ORDERED: SODIUM CHLORIDE 0.9% FLUSH 10 ML FLUSH IV FLUSH PRN (10:00)
[2016-09-20] MEDS ORDERED: ONDANSETRON HCL 4 MG/2 ML VIAL IVP ONE (10:00)
[2016-09-20] MEDS ORDERED: PANTOPRAZOLE SODIUM 40 MG VIAL IV PUSH ONE (10:00)
--- NOTE | 2016-09-20 10:00 | PD ---
HPI Chief Complaint: GI Complaint Time Seen by Provider: 09:58 Travel History International Travel<30 days: No Contact w/Intl Traveler<30days: No Traveled to known affect area: No History of Present Illness HPI 21-year-old female with history of esophageal ulcers, presents to the ER today because she states that she had alcohol last night and this morning woke up vomiting, having some diarrhea. She states that she was supposed to be on Protonix and sucralfate but had stopped taking it. She denies any fevers, black stools, blood in the stools, or any other issues. She does not know any sick contacts. Modifying Factors: None Associated Signs & Symptoms: Nausea, vomiting, diarrhea Risk Factors: Esophageal ulcers PFSH Past Medical History Asthma: Yes (EXERSICE INDUCED) Depression: Yes Cardiovascular Problems: No Diabetes: No Diminished Hearing: No Gastrointestinal Disorders: No Genitourinary: Yes (hx of kidney infections) Musculoskeletal: No Neurologic: No Respiratory: Yes Immunizations Current: Yes ?: Not : 0 Para: 0 Miscarriage: 0 : 0 Past Surgical History Ear Surgery: Yes (TUBES 1999) Oral Surgery: Yes (T & A 1999) Tonsillectomy: Yes Tympanostomy Tube: Yes Other Surgery: Yes Social History Alcohol Use: Yes (OCCASIONALLY mix drinks or wine) Tobacco Use: No Substance Use: Yes (MARIJUANA sometimes) Allergies-Medications (Allergen,Severity, Reaction): Coded Allergies: Albuterol (Verified Allergy, Severe, Anaphylaxis, 07/18/16) Xopenex (Verified Allergy, Severe, Anaphylaxis, 07/18/16) Bactrim (Verified Allergy, Intermediate, Swelling, 07/18/16) Sulfa (Verified Allergy, Unknown, HIVES, 07/18/16) Reported Meds & Prescriptions Reported Meds & Active Scripts Active Zofran Odt (Ondansetron Odt) 4 Mg Tab 4 Mg SL Q8HR PRN Review of Systems Except as stated in HPI: all other systems reviewed are Neg Physical Exam Narrative GENERAL: Well-developed young white female patient currently in moderate distress. Awake and oriented 3. SKIN: Focused skin assessment warm/dry. HEAD: Atraumatic. Normocephalic. EYES: Pupils equal and round. No scleral icterus. No injection or drainage. ENT: No nasal bleeding or discharge. Mucous membranes pink and moist. NECK: Trachea midline. No JVD. CARDIOVASCULAR: Regular rate and rhythm. No murmur appreciated. RESPIRATORY: No accessory muscle use. Clear to auscultation. Breath sounds equal bilaterally. GASTROINTESTINAL: Abdomen soft, non-tender, nondistended. Hepatic and splenic margins not palpable. MUSCULOSKELETAL: No obvious deformities. No clubbing. No cyanosis. No edema. NEUROLOGICAL: Awake and alert. No obvious cranial nerve deficits. Motor grossly within normal limits. Normal speech. PSYCHIATRIC: Appropriate mood and affect; insight and judgment normal. Data Data Last Documented VS Vital Signs Date Time Temp Pulse Resp B/P Pulse Ox O2 Delivery O2 Flow Rate FiO2 09/20/16 10:30 70 16 120/74 100 Orders Comprehensive Metabolic Panel (09/20/16 09:53) Lipase (09/20/16 09:53) Urinalysis - C+S If Indicated (09/20/16 09:53) Iv Access Insert/Monitor (09/20/16 09:53) Ecg Monitoring (09/20/16 09:53) Oximetry (09/20/16 09:53) Ondansetron Inj (Zofran Inj) (09/20/16 10:00) Sodium Chlor 0.9% 1000 Ml Inj (Ns 1000 M (09/20/16 09:53) Sodium Chloride 0.9% Flush (Ns Flush) (09/20/16 10:00) Ed Urine Pregnancytest Poc (09/20/16 09:53) Complete Blood Count With Diff (09/20/16 09:53) Pantoprazole Inj (Protonix Inj) (09/20/16 10:00) Metoclopramide Inj (Reglan Inj) (09/20/16 10:45) Diphenhydramine Inj (Benadryl Inj) (09/20/16 10:45) Ct Abd/Pel W Iv Contrast(Rout) (09/20/16 11:19) Labs Laboratory Tests Test 09/20/16 09/20/16 09:45 10:00 Urine Collection Type CLEAN CATCH Urine Color YELLOW Urine Turbidity SLIGHT Urine pH 7.0 Urine Specific [place] 1.021 Urine Protein TRACE mg/dL Urine Glucose (UA) NEG mg/dL Urine Ketones NEG mg/dL Urine Occult Blood NEG Urine Nitrite NEG Urine Bilirubin NEG Urine Leukocyte Esterase NEG Urine WBC 3-5 /hpf Urine Squamous Epithelial > 8 /hpf Cells Urine Amorphous Sediment LARGE Microscopic Urinalysis Comment CULT NOT INDICATED Urine Collection Time 0945 White Blood Count 16.5 TH/MM3 Red Blood Count 4.72 MIL/MM3 Hemoglobin 14.2 GM/DL Hematocrit 41.8 % Mean Corpuscular Volume 88.6 FL Mean Corpuscular Hemoglobin 30.0 PG Mean Corpuscular Hemoglobin 33.9 % Concent Red Cell Distribution Width 12.8 % Platelet Count 237 TH/MM3 Mean Platelet Volume 8.5 FL Neutrophils (%) (Auto) 74.5 % Lymphocytes (%) (Auto) 20.0 % Monocytes (%) (Auto) 4.3 % Eosinophils (%) (Auto) 0.8 % Basophils (%) (Auto) 0.4 % Neutrophils # (Auto) 12.3 TH/MM3 Lymphocytes # (Auto) 3.3 TH/MM3 Monocytes # (Auto) 0.7 TH/MM3 Eosinophils # (Auto) 0.1 TH/MM3 Basophils # (Auto) 0.1 TH/MM3 CBC Comment DIFF FINAL Differential Comment Sodium Level 141 MEQ/L Potassium Level 3.4 MEQ/L Chloride Level 107 MEQ/L Carbon Dioxide Level 18.1 MEQ/L Anion Gap 16 MEQ/L Blood Urea Nitrogen 10 MG/DL Creatinine 0.75 MG/DL Estimat Glomerular Filtration 98 ML/MIN Rate Random Glucose 101 MG/DL Calcium Level 8.8 MG/DL Total Bilirubin 0.2 MG/DL Aspartate Amino Transf 26 U/L (AST/SGOT) Alanine Aminotransferase 24 U/L (ALT/SGPT) Alkaline Phosphatase 55 U/L Total Protein 7.6 GM/DL Albumin 3.7 GM/DL Lipase 97 U/L [facility] Medical Decision Making Medical Screen Exam Complete: Yes Emergency Medical Condition: Yes Medical Record Reviewed: Yes Interpretation(s) Laboratory Tests Test 09/20/16 09/20/16 09:45 10:00 Urine Squamous Epithelial > 8 /hpf (0-5) Cells White Blood Count 16.5 TH/MM3 (4.0-11.0) Neutrophils (%) (Auto) 74.5 % (16.0-70.0) Neutrophils # (Auto) 12.3 TH/MM3 (1.8-7.7) Potassium Level 3.4 MEQ/L (3.5-5.1) Carbon Dioxide Level 18.1 MEQ/L (21.0-32.0) Anion Gap 16 MEQ/L (5-15) Differential Diagnosis Nausea, vomiting, diarrheagastritis versus pancreatitis versus dehydration versus gastroenteritis Narrative Course Patient was initially given Zofran but was continuing to vomit. She was then given IV fluids and Reglan with improvement symptoms. Lab work shows leukocytosis and CAT scan was ordered for further evaluation. It showed hepatic steatosis with she patient has had in the past according to mom. Liver enzymes are currently normal. Her lab work did not indicate significant metabolic issues. She has GI doctors that she has follow-up in the past and has had endoscopy for evaluation showing ulcers. At this point, he seems to be that she may have some underlying gastritis from alcohol use. No signs of pancreatitis seen. On reevaluation again at 12:30 PM, she had one more episode of vomiting. At this point, I have talked to mom and her regarding observation admission versus attempt at outpatient therapy with further nausea medications. Patient and mom's agrees that they have dealt with this in the past and would rather try outpatient therapy at this time. They should return if her vomiting cannot be controlled and she has not able to keep down any fluids. She should return for any worsening in symptoms, pain, fevers, and as needed. They state understanding. Diagnosis Primary Impression: Nausea & vomiting Med/Other Pt SpecificInfo: Prescription(s) given Scripts Sucralfate (Carafate)1 Gm Tab1 Gm PO TID #30 TAB Ref 0 On empty stomach Prov:Fortunato Snyder MD 09/20/16 Pantoprazole (Protonix)40 Mg Tab40 Mg PO DAILY #20 TAB Ref 0 Prov:Fortunato Snyder MD 09/20/16 Metoclopramide (Reglan)10 Mg Tab10 Mg PO QID PRN (NAUSEA OR VOMITING) #20 TAB Ref 0 Prov:Fortunato Snyder MD 09/20/16 Disposition: DISCHARGE HOME Condition: Stable Fortunato Snyder MD Sep 20, 2016 10:00
[2016-09-20 10:30] VITALS: BP 120/74; PULSE 70; RESP 16; O2SAT 100
[2016-09-20] MEDS ORDERED: diphenhydrAMINE HCL 50 MG/ML VIAL IV PUSH ONE (10:45)
[2016-09-20] MEDS ORDERED: METOCLOPRAMIDE HCL 10 MG/2 ML VIAL IV PUSH ONE (10:45)
[2016-09-20 10:53] LABS: BLOOD, URINE NEG (NEG); GLUCOSE,URINE NEG (NEG); KETONE, URINE NEG (NEG); NITRITE,URINE NEG (NEG)
[2016-09-20 10:55] LABS: CHLORIDE 107 MEQ/L (98-107); POTASSIUM 3.4 MEQ/L (3.5-5.1); SODIUM (NA) 141 MEQ/L (136-145)
[2016-09-20 10:57] LABS: ANION GAP 16 MEQ/L (5-15); BICARBONATE 18.1 MEQ/L (21.0-32.0)
[2016-09-20 10:58] LABS: AUTOMATED NEUTROPHIL # 12.3 TH/MM3 (1.8-7.7); BASOPHIL # 0.1 TH/MM3 (0-0.2); BASOPHIL % 0.4 % (0.0-2.0); BLOOD UREA NITROGEN 10 MG/DL (7-18); EOSINOPHIL # 0.1 TH/MM3 (0-0.4); EOSINOPHIL % 0.8 % (0.0-4.0); HEMATOCRIT 41.8 % (35.0-46.0); HEMO FLAGS DIFF FINAL; LYMPHOCYTE # 3.3 TH/MM3 (1.0-4.8); MEAN CELL VOLUME 88.6 FL (80.0-100.0); MEAN CORPUSCULAR HGB CONC 33.9 % (32.0-36.0); MONO % 4.3 % (0.0-8.0); NEUT % 74.5 % (16.0-70.0); PLATELET COUNT 237 TH/MM3 (150-450); RED BLOOD COUNT 4.72 MIL/MM3 (4.00-5.30); RED CELL DISTRIBUTION WIDTH 12.8 % (11.6-17.2); WHITE BLOOD COUNT 16.5 TH/MM3 (4.0-11.0)
[2016-09-20 11:00] LABS: ALT (GPT) 24 U/L (10-53); AST (GOT) 26 U/L (15-37); GLOMERULAR FILTRATION RATE 98 ML/MIN (>89)
[2016-09-20 11:02] LABS: TOTAL BILIRUBIN ADULT 0.2 MG/DL (0.2-1.0)
[2016-09-20 11:02] LABS: METHOD OF COLLECTION CLEAN CATCH; URINE COLOR YELLOW (YELLW/STRAW)
[2016-09-20 11:03] LABS: ALKALINE PHOSPHATASE 55 U/L (45-117)
[2016-09-20 11:04] LABS: COMMENT (UR) CULT NOT INDICATED; CULTURE IF INDICATED CULT NOT INDICATED; SQUAMOUS EPITHELIAL CELL URINE > 8 /hpf (0-5)
[2016-09-20 11:05] LABS: COMMENT2 (UR) MUCOUS PRESENT
--- NOTE | 2016-09-20 12:25 | RADRPT ---
EXAM DATE/TIME: 09/20/2016 12:00 [facility] COMPARISON: CT ABDOMEN & PELVIS W CONTRAST, February 07, 2015, 3:52. INDICATIONS : Upper abdominal pain mid abdomen. IV CONTRAST: 96 cc Omnipaque 350 (iohexol) IV ORAL CONTRAST: No oral contrast ingested. RADIATION DOSE: 6.49 CTDIvol (mGy) MEDICAL HISTORY : Kidney infections frequently. SURGICAL HISTORY : Tonsillectomy. ENCOUNTER: Initial ACUITY: 1 day PAIN SCALE: 10/10 LOCATION: Bilateral upper quadrant abdominal TECHNIQUE: Volumetric scanning of the abdomen and pelvis was performed. Using automated exposure control and ad justment of the mA and/or kV according to patient size, radiation dose was kept as low as reasonably achievable to obtain optimal diagnostic quality images. DICOM format image data is available electro nically for review and comparison. FINDINGS: LOWER LUNGS: 5 mm nodule in the left lower lobe is stable compared to previous study in 2015. LIVER: Liver is mildly enlarged. It has a heterogeneous texture without discrete space occupying lesion. The re is no dilation of the biliary tree. No calcified gallstones. SPLEEN: Normal size without lesion. PANCREAS: Within normal limits. KIDNEYS: Normal in size and shape. There is no mass, stone or hydronephrosis. ADRENAL GLANDS: Within normal limits. VASCULAR: There is no aortic aneurysm. BOWEL/MESENTERY: The stomach, small bowel, and colon demonstrate no acute abnormality. There is no free intraperitone al air or fluid. ABDOMINAL WALL: Within normal limits. RETROPERITONEUM: There is no lymphadenopathy. BLADDER: No wall thickening or mass. REPRODUCTIVE: Within normal limits. INGUINAL: There is no lymphadenopathy or hernia. MUSCULOSKELETAL: Within normal limits for patient age. CONCLUSION: 1. Hepatomegaly with altered density suggesting increasing fat content. 2. No acute process. 3. Stable granuloma left lower lobe. Enrique Ng MD on September 20, 2016 at 12:18 Board Certified Radiologist. This report was verified electronically.
[2016-09-20] MEDS ORDERED: REGL10TA5 PO (12:41)
[2016-09-20] MEDS ORDERED: PROT40TA PO (12:42)
[2016-09-20] MEDS ORDERED: CARA1TAB6 PO (12:42)
[2016-09-20 12:55] VITALS: BP 137/80
[2016-09-20] MEDS ORDERED: IOHEXOL 350 MG/ML 10 ML VIAL (for RAD DIAG) IV ONE (13:04)
[2016-09-20 13:46] VITALS: BP 137/80
== END 2016-09-20 12:54 | disposition home or self-care (01) ==
LOC: PHED 09:38
DX: R11.2 Nausea with vomiting, unspecified (principal); K22.10 Ulcer of esophagus without bleeding
CPT/HCPCS: 74177; 80053; 81001; 83690; 84703; 85025; 96361; 96374; 96375; 99285; C9113; J1200; J2405; J2765; J7030; Q9967

== ENCOUNTER 2016-10-15 10:17 | Emergency (ER) | payer OTHER ==
[~2016-10-15] VITALS: Ht 160 cm; Wt 61.0 kg
[~2016-10-15 10:17] MED LIST changes: +CARA1TAB6 PO; +PROT40TA PO; +REGL10TA5 PO
[2016-10-15 10:23] VITALS: BP 148/86; PULSE 72; RESP 16; TEMP 98.4; O2SAT 100
[2016-10-15] MEDS ORDERED: SODIUM CHLOR 0.9% 1000 ML INJ 1,000 ML IV SCH (10:53)
[2016-10-15] MEDS ORDERED: SODIUM CHLORIDE 0.9% FLUSH 10 ML FLUSH IV FLUSH PRN (11:00)
[2016-10-15] MEDS ORDERED: FAMOTIDINE 20 MG/2 ML VIAL IV PUSH ONE (11:00)
[2016-10-15] MEDS ORDERED: MORPHINE SULFATE 4 MG/ML INJ IV PUSH ONE (11:00)
[2016-10-15] MEDS ORDERED: ONDANSETRON HCL 4 MG/2 ML VIAL IVP ONE (11:00)
[2016-10-15 11:11] LABS: AUTOMATED NEUTROPHIL # 11.6 TH/MM3 (1.8-7.7); BASOPHIL # 0.1 TH/MM3 (0-0.2); BASOPHIL % 0.9 % (0.0-2.0); EOSINOPHIL % 0.1 % (0.0-4.0); HEMATOCRIT 43.3 % (35.0-46.0); LYMPH % 6.2 % (9.0-44.0); LYMPHOCYTE # 0.8 TH/MM3 (1.0-4.8); MEAN CELL VOLUME 89.4 FL (80.0-100.0); MEAN CORPUSCULAR HEMOGLOBIN 30.1 PG (27.0-34.0); MEAN CORPUSCULAR HGB CONC 33.6 % (32.0-36.0); MONO % 0.9 % (0.0-8.0); NEUT % 91.9 % (16.0-70.0); PLATELET COUNT 217 TH/MM3 (150-450); RED BLOOD COUNT 4.84 MIL/MM3 (4.00-5.30); RED CELL DISTRIBUTION WIDTH 12.5 % (11.6-17.2); WHITE BLOOD COUNT 12.6 TH/MM3 (4.0-11.0)
[2016-10-15 11:13] LABS: HEMO FLAGS DIFF FINAL
[2016-10-15] MEDS ORDERED: METOCLOPRAMIDE HCL 10 MG/2 ML VIAL IV PUSH ONE (11:15)
[2016-10-15 11:21] LABS: CHLORIDE 106 MEQ/L (98-107); POTASSIUM 3.7 MEQ/L (3.5-5.1); SODIUM (NA) 141 MEQ/L (136-145)
[2016-10-15 11:25] LABS: ANION GAP 13 MEQ/L (5-15); BICARBONATE 21.9 MEQ/L (21.0-32.0); BLOOD UREA NITROGEN 9 MG/DL (7-18)
--- NOTE | 2016-10-15 11:27 | PD ---
HPI . Epigastric pain and vomiting Chief Complaint: GI Complaint Time Seen by Provider: 10:52 Travel History International Travel<30 days: No Contact w/Intl Traveler<30days: No Traveled to known affect area: No History of Present Illness HPI This patient presents with persistent vomiting for the last 36 hours. Most of the history is obtained from her mother. She was diagnosed with peptic ulcer disease in the recent past. Mom states that she has episodes of persistent vomiting. They do not know what the trigger might be. She is under the care of paperhanger apprentice. She is currently on Protonix and Carafate. She has Zofran at home but has taken that without relief. Her vomiting is severe. PFSH Past Medical History Asthma: Yes (Exercise induced) Depression: Yes Cardiovascular Problems: No Diabetes: No Diminished Hearing: No Gastrointestinal Disorders: Yes (Esophageal ulcers ) Genitourinary: Yes (Kidney infections ) Musculoskeletal: No Neurologic: No Respiratory: Yes Immunizations Current: Yes Seizures: Yes Tetanus Vaccination: < 5 Years Influenza Vaccination: No ?: Not LMP: 2 weeks ago : 0 Para: 0 Miscarriage: 0 : 0 Past Surgical History Ear Surgery: Yes (TUBES 1999) Oral Surgery: Yes (T & A 1999) Tonsillectomy: Yes (& adenoids ) Tympanostomy Tube: Yes Other Surgery: Yes Social History Alcohol Use: Yes (Occ.) Tobacco Use: No Substance Use: Yes (Marijuana occ.) Allergies-Medications (Allergen,Severity, Reaction): Coded Allergies: albuterol (Unverified Allergy, Severe, Anaphylaxis, 10/15/16) levalbuterol (Unverified Allergy, Severe, Anaphylaxis, 10/15/16) sulfamethoxazole (Unverified Allergy, Intermediate, Swelling, 10/15/16) trimethoprim (Unverified Allergy, Intermediate, Swelling, 10/15/16) Sulfa (Sulfonamide Antibiotics) (Unverified Allergy, Unknown, HIVES, ) Reported Meds & Prescriptions Reported Meds & Active Scripts Active Carafate (Sucralfate) 1 Gm Tab 1 Gm PO TID On empty stomach Protonix (Pantoprazole Sodium) 40 Mg Tab 40 Mg PO DAILY Review of Systems Except as stated in HPI: all other systems reviewed are Neg General / Constitutional: No: Fever, Chills Gastrointestinal: Positive: Nausea, Vomiting, Abdominal Pain, No: Diarrhea Physical Exam Narrative GENERAL: Awake and alert. She does not look like she feels very well. She does have an emesis bag with some emesis in it. SKIN: warm/dry. HEAD: Normocephalic. EYES: Pupils equal and round. No scleral icterus. No injection or drainage. ENT: No nasal bleeding or discharge. Mucous membranes pink and moist. NECK: Trachea midline. Full range of motion without pain.. CARDIOVASCULAR: Regular rate and rhythm. Heart sounds are normal. RESPIRATORY: No accessory muscle use. Clear to auscultation. Breath sounds equal bilaterally. GASTROINTESTINAL: Abdomen soft. Minimal epigastric tenderness. No guarding or rebound. Bowel sounds present. Nondistended. MUSCULOSKELETAL: No obvious deformities. NEUROLOGICAL: Awake and alert. No obvious cranial nerve deficits. Motor grossly within normal limits. Normal speech. PSYCHIATRIC: Appropriate mood and affect; insight and judgment normal. Data Data Last Documented VS Vital Signs Date Time Temp Pulse Resp B/P (MAP) Pulse Ox O2 Delivery O2 Flow Rate FiO2 10/15/16 10:23 98.4 72 16 148/86 (106) 100 Orders Orders Complete Blood Count With Diff (10/15/16 10:53) Comprehensive Metabolic Panel (10/15/16 10:53) Lipase (10/15/16 10:53) Iv Access Insert/Monitor (10/15/16 10:53) Morphine Inj (Morphine Inj) (10/15/16 11:00) Ondansetron Inj (Zofran Inj) (10/15/16 11:00) Sodium Chlor 0.9% 1000 Ml Inj (Ns 1000 M (10/15/16 10:53) Sodium Chloride 0.9% Flush (Ns Flush) (10/15/16 11:00) Famotidine Inj (Pepcid Inj) (10/15/16 11:00) Ed Urine Pregnancytest Poc (10/15/16 10:53) Metoclopramide Inj (Reglan Inj) (10/15/16 11:15) Labs Laboratory Tests Test 10/15/16 11:00 White Blood Count 12.6 TH/MM3 Red Blood Count 4.84 MIL/MM3 Hemoglobin 14.6 GM/DL Hematocrit 43.3 % Mean Corpuscular Volume 89.4 FL Mean Corpuscular Hemoglobin 30.1 PG Mean Corpuscular Hemoglobin Concent 33.6 % Red Cell Distribution Width 12.5 % Platelet Count 217 TH/MM3 Mean Platelet Volume 7.9 FL Neutrophils (%) (Auto) 91.9 % Lymphocytes (%) (Auto) 6.2 % Monocytes (%) (Auto) 0.9 % Eosinophils (%) (Auto) 0.1 % Basophils (%) (Auto) 0.9 % Neutrophils # (Auto) 11.6 TH/MM3 Lymphocytes # (Auto) 0.8 TH/MM3 Monocytes # (Auto) 0.1 TH/MM3 Eosinophils # (Auto) 0.0 TH/MM3 Basophils # (Auto) 0.1 TH/MM3 CBC Comment DIFF FINAL Differential Comment Blood Urea Nitrogen 9 MG/DL Creatinine 0.80 MG/DL Random Glucose 108 MG/DL Total Protein 8.0 GM/DL Albumin 4.3 GM/DL Calcium Level 8.7 MG/DL Alkaline Phosphatase 44 U/L Aspartate Amino Transf (AST/SGOT) 17 U/L Alanine Aminotransferase (ALT/SGPT) 27 U/L Total Bilirubin 0.4 MG/DL Sodium Level 141 MEQ/L Potassium Level 3.7 MEQ/L Chloride Level 106 MEQ/L Carbon Dioxide Level 21.9 MEQ/L Anion Gap 13 MEQ/L Estimat Glomerular Filtration Rate 91 ML/MIN Lipase 77 U/L MDM Medical Decision Making Medical Screen Exam Complete: Yes Emergency Medical Condition: Yes Differential Diagnosis Differential diagnosis includes but is not limited to viral gastritis, food poisoning, pancreatitis, pneumonia, hepatitis, acute coronary syndrome, Narrative Course This patient presents with persistent vomiting for the last 36 hours. She has a known history of peptic ulcer disease which causes occasional episodes of persistent vomiting. I will treat her with IV fluids and IV Reglan. CBC & BMP Diagram 10/15/16 11:00 Total Protein 8.0, Albumin 4.3, Calcium Level 8.7, Alkaline Phosphatase 44 L, Aspartate Amino Transf (AST/SGOT) 17, Alanine Aminotransferase (ALT/SGPT) 27, Total Bilirubin 0.4 Nausea and vomiting are markedly improved with Reglan. Diagnosis Primary Impression: Nausea & vomiting Qualified Codes: R11.2 - Nausea with vomiting, unspecified Additional Impression: Peptic ulcer disease Patient Instructions: Acute Nausea and Vomiting (DC), General Instructions Med/Other Pt SpecificInfo: Prescription(s) given Scripts Metoclopramide (Reglan) 10 Mg Tab 10 MG PO QID for nausea, #10 TAB 0 Refills Prov: Monica Teran MD 10/15/16 Disposition: 01 DISCHARGE HOME Condition: Stable Monica Teran MD Oct 15, 2016 11:27
[2016-10-15 11:28] LABS: ALT (GPT) 27 U/L (10-53); AST (GOT) 17 U/L (15-37); GLOMERULAR FILTRATION RATE 91 ML/MIN (>89)
[2016-10-15 11:29] LABS: TOTAL BILIRUBIN ADULT 0.4 MG/DL (0.2-1.0)
[2016-10-15 11:31] LABS: ALKALINE PHOSPHATASE 44 U/L (45-117)
[2016-10-15] MEDS ORDERED: REGL10TA5 PO (11:53)
[2016-10-15 12:15] VITALS: BP 136/89; PULSE 78; RESP 16; O2SAT 100
== END 2016-10-15 12:30 | disposition home or self-care (01) ==
LOC: PHED 10:17
DX: R11.2 Nausea with vomiting, unspecified (principal); K27.9 Peptic ulcer, site unspecified, unspecified as acute or chronic, without hemorrhage or perforation
CPT/HCPCS: 80053; 83690; 85025; 96361; 96374; 96375; 99284; J2765; J7030

== ENCOUNTER 2016-11-30 15:22 | Emergency (ER) | payer OTHER ==
[~2016-11-30] VITALS: Ht 160 cm; Wt 64.0 kg
[~2016-11-30 15:22] MED LIST changes: -ZOFR4TAB3 SL
[2016-11-30 15:30] VITALS: BP 140/58; PULSE 79; RESP 18; TEMP 99.2; O2SAT 99
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
== END 2016-11-30 17:01 | disposition home or self-care (01) ==
LOC: PHEFT 15:22
DX: S20.219A Contusion of unspecified front wall of thorax, initial encounter (principal); S40.012A Contusion of left shoulder, initial encounter; S90.31XA Contusion of right foot, initial encounter; V49.40XA Driver injured in collision with unspecified motor vehicles in traffic accident, initial encounter
CPT/HCPCS: 71010; 73030; 73650; 84703; 99284

== ENCOUNTER 2017-07-27 06:56 | Emergency (ER) | payer OTHER ==
[~2017-07-27] VITALS: Ht 160 cm; Wt 73.5 kg
[2017-07-27 07:01] VITALS: BP 159/104; PULSE 88; RESP 18; TEMP 97.9; O2SAT 100
[2017-07-27 07:24] LABS: BILIRUBIN, URINE NEG (NEG); BLOOD, URINE NEG (NEG); GLUCOSE,URINE NEG (NEG); KETONE, URINE NEG (NEG); NITRITE,URINE NEG (NEG); PH, URINE 6.5 (5.0-8.5); URINE COLOR YELLOW (YELLW/STRAW); URINE LEUKOCYTE ESTERASE NEG (NEG)
[2017-07-27 07:44] LABS: AUTOMATED NEUTROPHIL # 3.7 TH/MM3 (1.8-7.7); BASOPHIL % 0.8 % (0.0-2.0); EOSINOPHIL # 0.1 TH/MM3 (0-0.4); EOSINOPHIL % 1.1 % (0.0-4.0); HEMATOCRIT 45.1 % (35.0-46.0); HEMOGLOBIN 15.3 GM/DL (11.6-15.3); LYMPH % 31.4 % (9.0-44.0); LYMPHOCYTE # 1.9 TH/MM3 (1.0-4.8); MEAN CELL VOLUME 91.2 FL (80.0-100.0); MEAN CORPUSCULAR HEMOGLOBIN 30.9 PG (27.0-34.0); MEAN CORPUSCULAR HGB CONC 33.9 % (32.0-36.0); MONO % 5.3 % (0.0-8.0); MONOCYTE # 0.3 TH/MM3 (0-0.9); NEUT % 61.4 % (16.0-70.0); PLATELET COUNT 206 TH/MM3 (150-450); RED BLOOD COUNT 4.95 MIL/MM3 (4.00-5.30); RED CELL DISTRIBUTION WIDTH 11.5 % (11.6-17.2)
--- NOTE | 2017-07-27 07:44 | PD ---
HPI Chief Complaint: vomiting Time Seen by Provider: 07:35 Travel History International Travel<30 days: No Contact w/Intl Traveler<30days: No Traveled to known affect area: No History of Present Illness HPI 22yo F with PMH of esophageal ulcers presents to the ED with c/o epigastric abdominal pain and vomiting since last night. Said it was constant and more sharp today. Denies any fever, chest pain, sob, diarrhea, dysuria, hematuria, vaginal bleeding or discharge. Pain is moderate in severity. Nonradiating. Lying down makes the pain worst. Pt had similar pain last year but did not take any medications today. Said she had EGD last year at [facility] that showed ulcers in esophagus. PFSH Past Medical History Asthma: Yes (Exercise induced) Depression: Yes Cardiovascular Problems: No Diabetes: No Diminished Hearing: No Gastrointestinal Disorders: Yes (Esophageal ulcers ) Genitourinary: Yes (Kidney infections ) Musculoskeletal: No Neurologic: No Respiratory: Yes Immunizations Current: Yes Tetanus Vaccination: Unknown ?: Not LMP: 2 weeks ago : 0 Para: 0 Miscarriage: 0 : 0 Past Surgical History Ear Surgery: Yes (TUBES 1999) Oral Surgery: Yes (T & A 1999) Tonsillectomy: Yes (& adenoids ) Tympanostomy Tube: Yes Other Surgery: Yes Social History Alcohol Use: Yes (Occ.) Tobacco Use: No Substance Use: Yes (Marijuana occ.) Allergies-Medications (Allergen,Severity, Reaction): Coded Allergies: albuterol (Unverified Allergy, Severe, Anaphylaxis, 07/27/17) levalbuterol (Unverified Allergy, Severe, Anaphylaxis, 07/27/17) sulfamethoxazole (Unverified Allergy, Intermediate, Swelling, 07/27/17) trimethoprim (Unverified Allergy, Intermediate, Swelling, 07/27/17) Sulfa (Sulfonamide Antibiotics) (Unverified Allergy, Unknown, HIVES, ) Reported Meds & Prescriptions Reported Meds & Active Scripts Active No Active Prescriptions or Reported Medications Review of Systems Except as stated in HPI: all other systems reviewed are Neg Physical Exam Narrative GENERAL: 22yo F in mild distress. SKIN: Focused skin assessment warm/dry. HEAD: Atraumatic. Normocephalic. EYES: Pupils equal and round. No scleral icterus. No injection or drainage. ENT: No nasal bleeding or discharge. Mucous membranes pink and moist. NECK: Trachea midline. No JVD. CARDIOVASCULAR: Regular rate and rhythm. No murmur appreciated. RESPIRATORY: No accessory muscle use. Clear to auscultation. Breath sounds equal bilaterally. GASTROINTESTINAL: Abdomen soft, +TTP epigastric abdomen. No rebound tenderness or guarding. No RLQ ttp. BACK: No CVA tenderness bilaterally. MUSCULOSKELETAL: No obvious deformities. No clubbing. No cyanosis. No edema. NEUROLOGICAL: Awake and alert. No obvious cranial nerve deficits. Motor grossly within normal limits. Normal speech. PSYCHIATRIC: Appropriate mood and affect; insight and judgment normal. Data Data Last Documented VS Vital Signs Date Time Temp Pulse Resp B/P (MAP) Pulse Ox O2 Delivery O2 Flow Rate FiO2 07/27/17 07:47 75 16 116/73 (87) 100 Room Air 07/27/17 07:01 97.9 Orders Orders Urinalysis - C+S If Indicated (07/27/17 06:59) Ed Urine Pregnancytest Poc (07/27/17 06:59) Complete Blood Count With Diff (07/27/17 07:21) Comprehensive Metabolic Panel (07/27/17 07:21) Lipase (07/27/17 07:21) Ondansetron Odt (Zofran Odt) (07/27/17 07:45) Al-Mag Hy-Si 40-40-4 Mg/Ml Liq (Mag-Al P (07/27/17 07:45) Lidocaine 2% Viscous (Xylocaine 2% Visco (07/27/17 07:45) Pantoprazole (Protonix) (07/27/17 07:45) Sodium Chlor 0.9% 1000 Ml Inj (Ns 1000 M (07/27/17 07:45) Labs Laboratory Tests Test 07/27/17 07:06 07/27/17 07:20 Urine Color YELLOW Urine Turbidity CLEAR Urine pH 6.5 Urine Specific [place] 1.020 Urine Protein TRACE mg/dL Urine Glucose (UA) NEG mg/dL Urine Ketones NEG mg/dL Urine Occult Blood NEG Urine Nitrite NEG Urine Bilirubin NEG Urine Urobilinogen 0.2 mg/dL Urine Leukocyte Esterase NEG Urine WBC 0-2 /hpf Urine Squamous Epithelial Cells 6-8 /hpf Microscopic Urinalysis Comment CULT NOT INDICATED White Blood Count 6.0 TH/MM3 Red Blood Count 4.95 MIL/MM3 Hemoglobin 15.3 GM/DL Hematocrit 45.1 % Mean Corpuscular Volume 91.2 FL Mean Corpuscular Hemoglobin 30.9 PG Mean Corpuscular Hemoglobin Concent 33.9 % Red Cell Distribution Width 11.5 % Platelet Count 206 TH/MM3 Mean Platelet Volume 8.0 FL Neutrophils (%) (Auto) 61.4 % Lymphocytes (%) (Auto) 31.4 % Monocytes (%) (Auto) 5.3 % Eosinophils (%) (Auto) 1.1 % Basophils (%) (Auto) 0.8 % Neutrophils # (Auto) 3.7 TH/MM3 Lymphocytes # (Auto) 1.9 TH/MM3 Monocytes # (Auto) 0.3 TH/MM3 Eosinophils # (Auto) 0.1 TH/MM3 Basophils # (Auto) 0.0 TH/MM3 CBC Comment DIFF FINAL Differential Comment Blood Urea Nitrogen 10 MG/DL Creatinine 0.71 MG/DL Random Glucose 92 MG/DL Total Protein 7.9 GM/DL Albumin 4.2 GM/DL Calcium Level 9.0 MG/DL Alkaline Phosphatase 49 U/L Aspartate Amino Transf (AST/SGOT) 17 U/L Alanine Aminotransferase (ALT/SGPT) 19 U/L Total Bilirubin 0.3 MG/DL Sodium Level 138 MEQ/L Potassium Level 3.6 MEQ/L Chloride Level 105 MEQ/L Carbon Dioxide Level 24.9 MEQ/L Anion Gap 8 MEQ/L Estimat Glomerular Filtration Rate 103 ML/MIN Lipase 92 U/L [facility] Medical Decision Making Medical Screen Exam Complete: Yes Emergency Medical Condition: Yes Differential Diagnosis Peptic ulcer disease vs. pancreatitis vs. gastritis Narrative Course 22yo F with epigastric abdominal pain and vomiting. Labs reviewed, no leukocytosis. H/H normal. CMP unremarkable. Lipase normal. UA negative. Urine negative. Pt given zofran, GI cocktail, pantoprazole and NS IVF. Pt reevaluated at bedside after medications and feels much better. No longer nauseous and no longer pain. Abdomen is soft and nontender to palpation. She is well appearing and tolerating PO now. Return precautions given. Diagnosis Primary Impression: Peptic ulcer disease Patient Instructions: General Instructions Departure Forms: Tests/Procedures Additional Instructions: Please follow up with your laboratory courier as outpatient. Return to the ED if symptoms worsen. Med/Other Pt SpecificInfo: Prescription(s) given Scripts Ondansetron Odt (Zofran Odt) 4 Mg Tab 4 MG SL Q12HR Y for Nausea/Vomiting, #6 TAB 0 Refills Prov: Layla Berumen DO 07/27/17 Omeprazole (Omeprazole) 20 Mg Tab 20 MG PO DAILY, #30 TAB 0 Refills Prov: Layla Berumen DO 07/27/17 Disposition: 01 DISCHARGE HOME Condition: Stable Layla Berumen DO Jul 27, 2017 07:44
[2017-07-27] MEDS ORDERED: PANTOPRAZOLE SOD 40 MG DELAYED RELEASE TAB PO ONE (07:45)
[2017-07-27] MEDS ORDERED: SODIUM CHLOR 0.9% 1000 ML INJ 1,000 ML IV ONE (07:45)
[2017-07-27] MEDS ORDERED: ONDANSETRON ODT 4 MG TAB PO ONE (07:45)
[2017-07-27] MEDS ORDERED: LIDOCAINE VISCOUS 2% SOLN 15 ML UDC PO ONE (07:45)
[2017-07-27] MEDS ORDERED: ALUMINUM/MAGNESIUM/SIMETH 30 ML CUP PO ONE (07:45)
[2017-07-27 07:47] VITALS: BP 116/73; PULSE 75; RESP 16; O2SAT 100
[2017-07-27 07:49] LABS: CHLORIDE 105 MEQ/L (98-107); SODIUM (NA) 138 MEQ/L (136-145)
[2017-07-27 07:50] LABS: WBC, URINE 0-2 /hpf (0-5)
[2017-07-27 07:53] LABS: ALBUMIN 4.2 GM/DL (3.4-5.0); BICARBONATE 24.9 MEQ/L (21.0-32.0); GLUCOSE,RANDOM 92 MG/DL (74-106)
[2017-07-27 07:54] LABS: BLOOD UREA NITROGEN 10 MG/DL (7-18)
[2017-07-27 07:56] LABS: ALT (GPT) 19 U/L (10-53); AST (GOT) 17 U/L (15-37); CREATININE 0.71 MG/DL (0.50-1.00); GLOMERULAR FILTRATION RATE 103 ML/MIN (>89)
[2017-07-27 07:58] LABS: TOTAL BILIRUBIN ADULT 0.3 MG/DL (0.2-1.0); TOTAL PROTEIN 7.9 GM/DL (6.4-8.2)
[2017-07-27 07:59] LABS: ALKALINE PHOSPHATASE 49 U/L (45-117)
[2017-07-27] MEDS ORDERED: OMEP20TA93 PO (08:49)
[2017-07-27] MEDS ORDERED: ZOFR4TAB3 SL (08:49)
== END 2017-07-27 09:14 | disposition home or self-care (01) ==
LOC: PHED 06:56
DX: K27.9 Peptic ulcer, site unspecified, unspecified as acute or chronic, without hemorrhage or perforation (principal); R11.10 Vomiting, unspecified; J45.909 Unspecified asthma, uncomplicated; K22.10 Ulcer of esophagus without bleeding
CPT/HCPCS: 80053; 81001; 83690; 84703; 85025; 96360; 99284; J7030

== ENCOUNTER 2017-07-29 07:02 | Emergency (ER) | payer OTHER ==
[~2017-07-29] VITALS: Ht 160 cm; Wt 73.2 kg
[~2017-07-29 07:02] MED LIST changes: -CARA1TAB6 PO; +OMEP20TA93 PO; -PROT40TA PO; -REGL10TA5 PO; +ZOFR4TAB3 SL
[2017-07-29 07:09] VITALS: BP 143/84; PULSE 83; RESP 18; TEMP 98.2; O2SAT 100
[2017-07-29] MEDS ORDERED: REGL5TAB PO (07:12)
[2017-07-29] MEDS ORDERED: LIDOCAINE VISCOUS 2% SOLN 15 ML UDC PO ONE ×2 (07:45→09:00)
[2017-07-29] MEDS ORDERED: ALUMINUM/MAGNESIUM/SIMETH 30 ML CUP PO ONE (07:45)
[2017-07-29] MEDS ORDERED: PROCHLORPERAZINE INJ 10 MG/2 ML VIAL IV PUSH ONE (07:45)
[2017-07-29] MEDS ORDERED: diphenhydrAMINE HCL 50 MG/ML VIAL IV PUSH ONE (07:45)
--- NOTE | 2017-07-29 08:20 | PD ---
HPI . Abdominal pain Chief Complaint: Abdominal Pain Time Seen by Provider: 07:34 Travel History International Travel<30 days: No Contact w/Intl Traveler<30days: No Traveled to known affect area: No History of Present Illness HPI Patient presents with chief complaint of epigastric abdominal pain. Onset was this morning. Pain is rated 10/10. It is associated with nausea and vomiting. This patient was seen here on 07/27 for same. She was diagnosed with peptic ulcer disease. She had a complete workup which was negative. She was treated in the emergency department with Zofran, GI cocktail and Protonix. She was discharged with prescriptions for Prilosec and Zofran. She did well until this morning when her symptoms occurred. PFSH Past Medical History Asthma: Yes (Exercise induced) Depression: Yes Cardiovascular Problems: No Diabetes: No Diminished Hearing: No Gastrointestinal Disorders: Yes (Esophageal ulcers ) GERD: Yes Genitourinary: Yes (Kidney infections ) Musculoskeletal: No Neurologic: No Respiratory: Yes Immunizations Current: Yes Seizures: Yes ?: Not LMP: 07/2017 : 0 Para: 0 Miscarriage: 0 : 0 Past Surgical History Ear Surgery: Yes (TUBES 1999) Oral Surgery: Yes (T & A 1999) Tonsillectomy: Yes (& adenoids ) Tympanostomy Tube: Yes Other Surgery: Yes Social History Alcohol Use: Yes (Occ.) Tobacco Use: No Substance Use: Yes (Marijuana occ.) Allergies-Medications (Allergen,Severity, Reaction): Coded Allergies: albuterol (Unverified Allergy, Severe, Anaphylaxis, 07/29/17) levalbuterol (Unverified Allergy, Severe, Anaphylaxis, 07/29/17) sulfamethoxazole (Unverified Allergy, Intermediate, Swelling, 07/29/17) trimethoprim (Unverified Allergy, Intermediate, Swelling, 07/29/17) Sulfa (Sulfonamide Antibiotics) (Unverified Allergy, Unknown, HIVES, ) Reported Meds & Prescriptions Reported Meds & Active Scripts Active Zofran Odt (Ondansetron Odt) 4 Mg Tab 4 Mg SL Q12HR PRN Omeprazole 20 Mg Tab 20 Mg PO DAILY Reported Reglan (Metoclopramide HCl) 5 Mg Tab 5 Mg PO ONCE Review of Systems Except as stated in HPI: all other systems reviewed are Neg Physical Exam Narrative GENERAL: Histrionic. Moaning loudly. Sitting in the bed rocking back and forth. SKIN: Diaphoretic. Normal color. HEAD: Normocephalic. Atraumatic. EYES: Pupils equal and round. Extraocular movements are intact. ENT: Mucous membranes pink and moist. NECK: Supple. Full range of motion without pain.. CARDIOVASCULAR: Regular rate and rhythm. RESPIRATORY: No accessory muscle use. Clear to auscultation. Breath sounds equal bilaterally. GASTROINTESTINAL: Abdomen soft. Nontender. Bowel sounds present. Nondistended. MUSCULOSKELETAL: No obvious deformities. Normal muscle tone. NEUROLOGICAL: Awake and alert. No obvious cranial nerve deficits. Motor grossly within normal limits. Normal speech. PSYCHIATRIC: Appropriate mood and affect; insight and judgment normal. Data Data Last Documented VS Vital Signs Date Time Temp Pulse Resp B/P (MAP) Pulse Ox O2 Delivery O2 Flow Rate FiO2 07/29/17 09:19 80 18 135/78 (97) 99 Room Air 07/29/17 07:09 98.2 Orders Orders ^ Saline Lock (07/29/17 07:37) Diphenhydramine Inj (Benadryl Inj) (07/29/17 07:45) Prochlorperazine Inj (Compazine Inj) (07/29/17 07:45) Al-Mag Hy-Si 40-40-4 Mg/Ml Liq (Mag-Al P (07/29/17 07:45) Lidocaine 2% Viscous (Xylocaine 2% Visco (07/29/17 07:45) Ondansetron Inj (Zofran Inj) (07/29/17 09:00) Lidocaine 2% Viscous (Xylocaine 2% Visco (07/29/17 09:00) Al-Mag Hy-Si 40-40-4 Mg/Ml Liq (Mag-Al P (07/29/17 09:00) Pantoprazole Inj (Protonix Inj) (07/29/17 09:45) Sucralfate Liq (Carafate Liq) (07/29/17 09:45) MDM Medical Decision Making Medical Screen Exam Complete: Yes Emergency Medical Condition: Yes Medical Record Reviewed: Yes (see HPI for review of records) Differential Diagnosis Differential diagnosis of abdominal pain includes but is not limited to gastritis, pancreatitis, hepatitis, gastroenteritis, constipation, urinary retention, peptic ulcer disease, diverticulitis or appendicitis Narrative Course Patient presents with the chief complaint of epigastric abdominal pain. She has a known history of peptic ulcer disease. She has a benign abdominal exam. Also, she is sitting up rocking back and forth on the stretcher. This indicates a nonsurgical abdomen. She is being treated first with Compazine and Benadryl for the nausea and vomiting. She will then be given a GI cocktail. She vomited the GI cocktail. I ordered a dose of Zofran followed by another GI cocktail. She continued to complain with epigastric discomfort. I have subsequently given her Protonix IV as well as Carafate p.o. She states that she went to the bathroom and vomited the Carafate. I feel that I have done all that I can for this patient. She had a normal workup yesterday. She does not look dehydrated today. I will discharge her to home with instructions to take the medications that were previously prescribed. I will give her an additional prescription for Carafate. Diagnosis Primary Impression: Nausea & vomiting Qualified Codes: R11.2 - Nausea with vomiting, unspecified Additional Impression: Pain, abdominal Qualified Codes: R10.13 - Epigastric pain Patient Instructions: Epigastric Pain (ED), General Instructions Med/Other Pt SpecificInfo: Prescription(s) given Scripts Sucralfate (Carafate) 1 Gram Tab 1 GM PO QID for Ulcer Prevention, #120 TAB 0 Refills On empty stomach Prov: Monica Teran MD 07/29/17 Disposition: 01 DISCHARGE HOME Condition: Stable Monica Teran MD Jul 29, 2017 08:20
[2017-07-29] MEDS: ALUMINUM/MAGNESIUM/SIMETH 30 ML CUP PO ONE ×2 (08:59→09:00)
[2017-07-29] MEDS ORDERED: ONDANSETRON HCL 4 MG/2 ML VIAL IVP ONE (09:00)
[2017-07-29 09:19] VITALS: BP 135/78; PULSE 80; RESP 18; O2SAT 99
[2017-07-29] MEDS ORDERED: SUCRALFATE 1 GM/10 ML CUP PO ONE (09:45)
[2017-07-29] MEDS ORDERED: PANTOPRAZOLE SODIUM 40 MG VIAL IV PUSH ONE (09:45)
[2017-07-29] MEDS ORDERED: CARA1TAB6 PO (10:54)
== END 2017-07-29 11:02 | disposition home or self-care (01) ==
LOC: PHED 07:02
DX: R11.2 Nausea with vomiting, unspecified (principal); R10.13 Epigastric pain; F12.90 Cannabis use, unspecified, uncomplicated; K21.9 Gastro-esophageal reflux disease without esophagitis
CPT/HCPCS: 96374; 96375; 99284; C9113; J0780; J1200; J2405